=== PATIENT | male | born 1985 | race Caucasian/White ===

== ENCOUNTER 2020-11-23 22:50 | Emergency (ER) | payer SELFPAY | END 2020-11-23 23:00 | disposition left against medical advice (07) | LOC: ED 22:50 | DX: M79.604 Pain in right leg (principal); Z53.21 Procedure and treatment not carried out due to patient leaving prior to being seen by health care provider ==

== ENCOUNTER 2021-01-22 22:38 | Emergency (ER) | payer MEDICAID ==
[2021-01-22 23:59] LABS: Bilirubin,Urine NEG (Negative); Blood,Urine NEG (Negative); Color,Urine Yellow (Yellow); Mucus,Urine FEW /HPF; Protein,Urine <15 mg/dL mg/dL (Negative); Urobilinogen,Urine < 2.0 mg/dL (<2.0)
[2021-01-23 00:04] LABS: Benzodiazepines Screen,Urine Negative; Cannabinoid Screen,Urine Negative; Cocaine Screen,Urine Negative; Methadone Screen,Urine Negative; Opiate Screen,Urine Negative
[2021-01-23 00:13] LABS: Basophils % (Auto) 0.6 % (0.0-1.8); Eosinophils % (Auto) 0.3 % (0.0-4.3); Hemoglobin 12.8 gm/dl (11.8-15.2); Lymphocytes # (Auto) 1.8 K/mm3 (1.2-5.4); Lymphocytes % (Auto) 34.5 % (13.4-35.0); Mean Corpuscular HGB Conc 33 % (32-34); Mean Corpuscular Volume 95 fl (84-94); Monocytes # (Auto) 0.7 K/mm3 (0.0-0.8); Monocytes % (Auto) 13.4 % (0.0-7.3); Platelet Count 349 K/mm3 (140-440); Red Blood Count 4.12 M/mm3 (3.65-5.03)
[2021-01-23 00:19] LABS: Amphetamine Screen,Urine PRESUMPTIVE POSITIVE
[2021-01-23 00:29] LABS: BUN/Creatinine Ratio 14; Blood Urea Nitrogen 14 mg/dL (9-20); Calcium 9.7 mg/dL (8.4-10.2); Hemolysis Index 1
--- NOTE | 2021-01-23 00:38 | Emergency Department Report ---
HPI - HPI HPI: Room 12 The patient is a 36-year-old male present with a chief complaint of paranoia. The patient admits to methamphetamine abuse states he last used yesterday. The patient states for the past several hours he is noticed people following and antagonizing him. Patient states they follow him on the bus in a crowded space. The patient states they make clicking sounds that sound like weapons being manip ulated. Patient states he believes these people are real and denies auditory visual hallucinations. Patient denies suicidal homicidal ideation <MISHA GODFREY - Last Filed: 01/23/21 02:05> <QUIQUE DUNCAN - Last Filed: 01/23/21 19:32> - General Chief Complaint: Psych Time Seen by Provider: 01/23/21 00:26 ED Past Medical Hx - Past Medical History Previous Medical History?: Yes Hx Psychiatric Treatment: Yes (anxiety manic depressive) - Surgical History Past Surgical History?: Yes Additional Surgical History: facial surgeries - Family History Family history: no significant - Social History Smoking Status: Current Every Day Smoker (1/2 pack/day) Substance Use Type: Alcohol (Rarely), Methamphetamines <MISHA GODFREY - Last Filed: 01/23/21 02:05> <QUIQUE DUNCAN - Last Filed: 01/23/21 19:32> - Medications Home Medications: Home Medications Medication Instructions Recorded Confirmed Last Taken Type ARIPiprazole [Abilify] 15 mg PO DAILY 30 Days #30 tab 01/23/21 Unknown Rx QUEtiapine [SEROquel] 200 mg PO QHS 30 Days #30 tablet 01/23/21 Unknown Rx buPROPion XL [Wellbutrin Xl] 150 mg PO DAILY 30 Days #30 tablet 01/23/21 Unknown Rx ED Review of Systems ROS: Stated complaint: ANXIETY/MH EVAL Other details as noted in HPI Constitutional: no symptoms reported Eyes: denies: eye pain ENT: denies: throat pain Respiratory: no symptoms reported Cardiovascular: denies: chest pain Endocrine: no symptoms reported Gastrointestinal: denies: abdominal pain Genitourinary: denies: dysuria Musculoskeletal: denies: back pain Neurological: denies: headache Psychiatric: denies: auditory hallucinations, visual hallucinations, homicidal thoughts, suicidal thoughts <MISHA GODFREY - Last Filed: 01/23/21 02:05> ROS: Stated complaint: ANXIETY/MH EVAL Other details as noted in HPI <QUIQUE DUNCAN - Last Filed: 01/23/21 19:32> Physical Exam - Physical Exam Vital Signs: Vital Signs 01/22/21 23:20 Temperature 98.7 F Pulse Rate 104 H Respiratory 18 Rate Blood Pressure 160/103 O2 Sat by Pulse 99 Oximetry Physical Exam: GENERAL: The patient is well-developed well-nourished male standing in hallway not appearing to be in acute distress. [] HEENT: Normocephalic. Atraumatic. Extraocular motions are intact. Patient has moist mucous membranes. NECK: Supple. Trachea midline CHEST/LUNGS: Clear to auscultation. There is no respiratory distress noted. HEART/CARDIOVASCULAR: Regular. There is no tachycardia. There is no gallop rub or murmur. ABDOMEN: Abdomen is soft, nontender. Patient has normal bowel sounds. There is no abdominal distention. SKIN: There is no rash. There is no edema. There is no diaphoresis. NEURO: The patient is awake, alert, and oriented. The patient is cooperative. The patient has no focal neurologic deficits. The patient has normal speech and gait. GCS 15 MUSCULOSKELETAL: There is no evidence of acute injury. <MISHA GODFREY - Last Filed: 01/23/21 02:05> - Physical Exam Vital Signs: Vital Signs 01/22/21 01/23/21 01/23/21 23:20 03:00 03:12 Temperature 98.7 F 98.6 F Pulse Rate 104 H 95 H Respiratory 18 20 20 Rate Blood Pressure 160/103 Blood Pressure 155/98 [Left] O2 Sat by Pulse 99 99 99 Oximetry 01/23/21 08:34 Temperature 97.6 F Pulse Rate 84 Respiratory 16 Rate Blood Pressure Blood Pressure 132/84 [Left] O2 Sat by Pulse 99 Oximetry <QUIQUE DUNCAN - Last Filed: 01/23/21 19:32> ED Course Vital Signs 01/22/21 23:20 Temperature 98.7 F Pulse Rate 104 H Respiratory 18 Rate Blood Pressure 160/103 O2 Sat by Pulse 99 Oximetry <MISHA GODFREY - Last Filed: 01/23/21 02:05> Vital Signs 01/22/21 01/23/21 01/23/21 23:20 03:00 03:12 Temperature 98.7 F 98.6 F Pulse Rate 104 H 95 H Respiratory 18 20 20 Rate Blood Pressure 160/103 Blood Pressure 155/98 [Left] O2 Sat by Pulse 99 99 99 Oximetry 01/23/21 08:34 Temperature 97.6 F Pulse Rate 84 Respiratory 16 Rate Blood Pressure Blood Pressure 132/84 [Left] O2 Sat by Pulse 99 Oximetry <QUIQUE DUNCAN - Last Filed: 01/23/21 19:32> ED Medical Decision Making - Lab Data Result diagrams: 01/22/21 23:26 01/22/21 23:26 Laboratory Tests 01/22/21 01/22/21 01/22/21 23:26 23:26 23:26 WBC RBC Hgb Hct MCV MCH MCHC RDW Plt Count Lymph % (Auto) [place] % (Auto) Eos % (Auto) Baso % (Auto) Lymph # (Auto) [place] # (Auto) Eos # (Auto) Baso # (Auto) Seg Neutrophils % Seg Neutrophils # Sodium 139 Potassium 3.9 Chloride 101.6 Carbon Dioxide 23 Anion Gap 18 BUN 14 Creatinine 1.0 Estimated GFR > 60 BUN/Creatinine Ratio 14 Glucose 72 L Calcium 9.7 Urine Color Urine Turbidity Urine pH Ur Specific [place] Urine Protein Urine Glucose (UA) Urine Ketones Urine Blood Urine Nitrite Urine Bilirubin Urine Urobilinogen Ur Leukocyte Esterase Urine WBC (Auto) Urine RBC (Auto) Urine Mucus Salicylates < 0.3 L Urine Opiates Screen Urine Methadone Screen Acetaminophen 5.0 L Ur Barbiturates Screen Ur Phencyclidine Scrn Ur Amphetamines Screen U Benzodiazepines Scrn Urine Cocaine Screen U Marijuana (THC) Screen Drugs of Abuse Note Plasma/Serum Alcohol 01/22/21 01/22/21 01/22/21 23:26 23:26 Unknown WBC 5.4 RBC 4.12 Hgb 12.8 Hct 39.0 MCV 95 H MCH 31 MCHC 33 RDW 13.0 L Plt Count 349 Lymph % (Auto) 34.5 [place] % (Auto) 13.4 H Eos % (Auto) 0.3 Baso % (Auto) 0.6 Lymph # (Auto) 1.8 [place] # (Auto) 0.7 Eos # (Auto) 0.0 Baso # (Auto) 0.0 Seg Neutrophils % 51.2 Seg Neutrophils # 2.7 Sodium Potassium Chloride Carbon Dioxide Anion Gap BUN Creatinine Estimated GFR BUN/Creatinine Ratio Glucose Calcium Urine Color Yellow Urine Turbidity Clear Urine pH 5.0 Ur Specific [place] 1.012 Urine Protein <15 mg/dl Urine Glucose (UA) Neg Urine Ketones Tr Urine Blood Neg Urine Nitrite Neg Urine Bilirubin Neg Urine Urobilinogen < 2.0 Ur Leukocyte Esterase Neg Urine WBC (Auto) 1.0 Urine RBC (Auto) 1.0 Urine Mucus Few Salicylates Urine Opiates Screen Urine Methadone Screen Acetaminophen Ur Barbiturates Screen Ur Phencyclidine Scrn Ur Amphetamines Screen U Benzodiazepines Scrn Urine Cocaine Screen U Marijuana (THC) Screen Drugs of Abuse Note Plasma/Serum Alcohol < 0.01 01/22/21 Unknown WBC RBC Hgb Hct MCV MCH MCHC RDW Plt Count Lymph % (Auto) [place] % (Auto) Eos % (Auto) Baso % (Auto) Lymph # (Auto) [place] # (Auto) Eos # (Auto) Baso # (Auto) Seg Neutrophils % Seg Neutrophils # Sodium Potassium Chloride Carbon Dioxide Anion Gap BUN Creatinine Estimated GFR BUN/Creatinine Ratio Glucose Calcium Urine Color Urine Turbidity Urine pH Ur Specific [place] Urine Protein Urine Glucose (UA) Urine Ketones Urine Blood Urine Nitrite Urine Bilirubin Urine Urobilinogen Ur Leukocyte Esterase Urine WBC (Auto) Urine RBC (Auto) Urine Mucus Salicylates Urine Opiates Screen Negative Urine Methadone Screen Negative Acetaminophen Ur Barbiturates Screen Negative Ur Phencyclidine Scrn Negative Ur Amphetamines Screen Presumptive positive U Benzodiazepines Scrn Negative Urine Cocaine Screen Negative U Marijuana (THC) Screen Negative Drugs of Abuse Note Disclamer Plasma/Serum Alcohol - Differential Diagnosis Paranoia, methamphetamine abuse, psychosis NOS <MISHA GODFREY - Last Filed: 01/23/21 02:05> - Lab Data Result diagrams: 01/22/21 23:26 01/22/21 23:26 - Medical Decision Making Patient has been evaluated by our psychiatric team and recommended outpatient treatment. Patient is currently denying any suicidal or homicidal ideation. No visual or auditory hallucination. Patient is medically and psychiatrically stable for discharge. <QUIQUE DUNCAN - Last Filed: 01/23/21 19:32> Critical care attestation.: If time is entered above; I have spent that time in minutes in the direct care of this critically ill patient, excluding procedure time. <MISHA GODFREY - Last Filed: 01/23/21 02:05> Critical care attestation.: If time is entered above; I have spent that time in minutes in the direct care of this critically ill patient, excluding procedure time. <QUIQUE DUNCAN - Last Filed: 01/23/21 19:32> ED Disposition <MISHA GODFREY - Last Filed: 01/23/21 02:05> Is pt being admited?: No <QUIQUE DUNCAN - Last Filed: 01/23/21 19:32> Clinical Impression: Paranoia, Methamphetamine abuse Disposition: - TO HOME OR SELFCARE Condition: Stable Instructions: Amphetamines Use Disorder, Substance Use Disorder Prescriptions: QUEtiapine [SEROquel] 200 mg PO QHS 30 Days #30 tablet ARIPiprazole [Abilify] 15 mg PO DAILY 30 Days #30 tab buPROPion XL [Wellbutrin Xl] 150 mg PO DAILY 30 Days #30 tablet Referrals: PRIMARY CARE, [Primary Care Provider] - 3-5 Days
[2021-01-23 08:34] VITALS: BP 132/84
--- NOTE | 2021-01-23 09:24 | Consultation ---
History of Present Illness - Reason for Consult Consult date: 01/23/21 Reason for consult: paranoia - History of Present Psychiatric Illness Per Note: The patient is a 36-year-old male present with a chief complaint of paranoia. The patient admits to methamphetamine abuse states he last used yesterday. The patient states for the past several hours he is noticed people following and antagonizing him. Patient states they follow him on the bus in a crowded space. The patient states they make clicking sounds that sound like weapons being manipulated. Patient states he believes these people are real and denies auditory visual hallucinations. Patient denies suicidal homicidal ideation Rodney Bernal is a 36 year old male with a past history of schizophrenia, Depression, Anxiety and PTSD who presents to the ED with paranoia. In my interview with the patient, he reports that he ran out of medications since about one week. Patient reports that he is seen at [facility] by Dr. Jamison. He reports that he his currently in therapy for Crystal Meth. recovery; states he has been sober for the last four weeks. He has tried Risperdal in the past but stopped due to weight gain. Patient states he is current on Wellbutrin XL 150mg, Abilify 15mg, and Seroquel 200mg. Patient denies any current suicidal/homicidal ideation and denies hallucinations. PAST PSYCHIATRIC HISTORY: Diagnoses: schizophrenia, depression, Anxiety, PTSD Suicide attempts or Self-harm behavior: Denies Prior psychiatric hospitalizations: unknown Substance Abuse history: Crystal Meth Previous psychiatric medications tried: Risperdal Outpatient treatment: yes PAST MEDICAL HISTORY: n/a Family Psychiatric History: None reported or documented SOCIAL HISTORY Marital Status: Living Arrangements: Lives alone Employment Status: Disability Access to guns/weapons: n/a Education: GED History of Abuse: n/a Legal History: n/a REVIEW OF SYSTEMS Constitutional: Negative for weight loss ENT: Negative for stridor Respiratory: Negative for cough or hemoptysis All other systems reviewed and are negative MENTAL STATUS EXAMINATION General Appearance and Behavior: Age appropriate, good hygiene, wearing appropriate clothes, uncooperative polite with questioning. Cooperation: cooperative Psychomotor Behavior: Psychomotor agitation Mood: good Affect and affective range: congruent to stated mood Thought Process: Goal directed Thought Content: within reality Speech: Normal volume, Regular rate and rhythm Intellectual Functioning: Average Suicidal Ideation: Denied Homicidal Ideation: Denied hallucination: Denies Impulse Control: Intact Insight and Judgment: limited Memory: Intact Attention:Normal Orientation: Alert and oriented Diagnoses:Schizophrenia F20.9 Current Visit: Yes Status: Acute RECOMMENDATIONS 1013 start Welbutrin XL 150mg po daily Start Abilify 15mg po daily Start seroquel 200mg po qhs Risks, benefits and alternatives of medications discussed with the patient, questions answered and consent obtained from patient. PSYCHOTHERAPY: Supportive psychotherapy provided MEDICAL: Per primary team DELIRIUM PRECAUTIONS: Please re-orient patient frequently, keep lights on during the day, and minimize benzodiazepines and opiates as these medications could worsen patient's confusion. 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 Please contact with any questions and/or concerns. Medications and Allergies Allergies Allergy/AdvReac Type Severity Reaction Status Date / Time shellfish derived Allergy Unknown Verified 01/22/21 23:20 Mental Status Exam - Vital signs Last Vital Signs Temp 97.6 F 01/23/21 08:34 Pulse 84 01/23/21 08:34 Resp 16 01/23/21 08:34 BP 132/84 01/23/21 08:34 Pulse Ox 99 01/23/21 08:34 Results Result Diagrams: 01/22/21 23:26 01/22/21 23:26 Abnormal lab results 01/22/21 01/22/21 01/22/21 Range/Units 23:26 23:26 23:26 MCV (84-94) fl RDW (13.2-15.2) % [place] % (Auto) (0.0-7.3) % Glucose 72 L (75-100) mg/dL Salicylates < 0.3 L (2.8-20.0) mg/dL Acetaminophen 5.0 L (10.0-30.0) ug/mL 01/22/21 Range/Units 23:26 MCV 95 H (84-94) fl RDW 13.0 L (13.2-15.2) % [place] % (Auto) 13.4 H (0.0-7.3) % Glucose (75-100) mg/dL Salicylates (2.8-20.0) mg/dL Acetaminophen (10.0-30.0) ug/mL All other labs normal.
== END 2021-01-23 11:56 | disposition home or self-care (01) ==
LOC: EDBD → ED 22:38 → EEVIPCON 22:38 → ED 01-23 11:56
DX: F22 Delusional disorders (principal); F15.10 Other stimulant abuse, uncomplicated; Z79.899 Other long term (current) drug therapy; Z91.013 Allergy to seafood
CPT/HCPCS: 36415; 80048; 80307; 80320; 81001; 85025; G0480

== ENCOUNTER 2021-01-26 01:53 | Emergency (ER) | payer SELFPAY | END 2021-01-26 06:45 | disposition left against medical advice (07) | LOC: ED 01:53 ==

== ENCOUNTER 2021-01-30 22:21 | Emergency (ER) | payer MEDICAID ==
[2021-01-31 00:20] LABS: BUN/Creatinine Ratio 10; Blood Urea Nitrogen 8 mg/dL (9-20); Calcium 9.3 mg/dL (8.4-10.2); Hemolysis Index 4
--- NOTE | 2021-01-31 01:01 | Emergency Department Report ---
ED Psych HPI - General Chief Complaint: Psych Stated Complaint: HOMICIDAL/VOICES/UNSAFE FEELING Time Seen by Provider: 01/31/21 00:58 Source: patient Mode of arrival: Ambulatory - History of Present Illness Initial Comments: Patient is a 36-year-old male who presents emergency room with complaints of homicidal ideations, auditory hallucinations, and not feeling safe. Patient s tates she is also depressed. Patient dates symptoms going on for 3 weeks. Patient states his symptoms are worsening. Patient states he needs help. Patient states 7 thoughts of people are out to get him. Patient states that his homicidal thoughts are against people that want to get him and he wants to kill them. Patient denies suicidal ideations. Patient denies visual hallucinations. Patient denies recent travel. Patient denies recent international travel. Patient denies exposure to the novel coronavirus. Patient denies sick contacts. Patient denies fever and chills. Patient denies cough. Patient denies diarrhea. Patient denies coming in contact with anybody with symptoms of the novel coronavirus. MD Complaint: feels depressed -: Sudden Associated Psychiatric Symptoms: homicidal ideation, racing thoughts, auditory hallucinations, delusions History of same: Yes Quality: constant Improves With: none Worsens With: none Context: not taking psychiatric, significant life stressor Associated Symptoms: denies: confusion, headache, shortness of breath, nausea, vomiting, syncope, insomnia - Related Data Previous Rx's Medication Instructions Recorded Last Taken Type ARIPiprazole [Abilify] 15 mg PO DAILY 30 Days #30 tab 01/23/21 Unknown Rx QUEtiapine [SEROquel] 200 mg PO QHS 30 Days #30 tablet 01/23/21 Unknown Rx buPROPion XL [Wellbutrin Xl] 150 mg PO DAILY 30 Days #30 tablet 01/23/21 Unknown Rx Allergies Allergy/AdvReac Type Severity Reaction Status Date / Time shellfish derived Allergy Unknown Verified 01/22/21 23:20 ED Review of Systems ROS: Stated complaint: HOMICIDAL/VOICES/UNSAFE FEELING Other details as noted in HPI Constitutional: denies: chills, fever Eyes: denies: eye pain, eye discharge, vision change ENT: denies: ear pain, throat pain Respiratory: denies: cough, shortness of breath, wheezing Cardiovascular: denies: chest pain, palpitations Endocrine: no symptoms reported Gastrointestinal: denies: abdominal pain, nausea, diarrhea Genitourinary: denies: urgency, dysuria Musculoskeletal: denies: back pain, joint swelling, arthralgia Skin: denies: rash, lesions Neurological: denies: headache, weakness, paresthesias Psychiatric: depression, auditory hallucinations, homicidal thoughts. denies: anxiety, visual hallucinations, suicidal thoughts Hematological/Lymphatic: denies: easy bleeding, easy bruising ED Past Medical Hx - Past Medical History Previous Medical History?: Yes Hx Psychiatric Treatment: Yes (anxiety manic depressive) - Surgical History Past Surgical History?: Yes Additional Surgical History: facial surgeries - Family History Family history: no significant - Social History Smoking Status: Never Smoker Substance Use Type: None - Medications Home Medications: Home Medications Medication Instructions Recorded Confirmed Last Taken Type ARIPiprazole [Abilify] 15 mg PO DAILY 30 Days #30 tab 01/23/21 01/31/21 Unknown Rx QUEtiapine [SEROquel] 200 mg PO QHS 30 Days #30 tablet 01/23/21 01/31/21 Unknown Rx buPROPion XL [Wellbutrin Xl] 150 mg PO DAILY 30 Days #30 tablet 01/23/21 01/31/21 Unknown Rx ED Physical Exam - General Limitations: No Limitations General appearance: alert, in no apparent distress - Head Head exam: Present: atraumatic, normocephalic - Eye Eye exam: Present: normal appearance - ENT ENT exam: Present: mucous membranes moist - Neck Neck exam: Present: normal inspection - Respiratory Respiratory exam: Present: normal lung sounds bilaterally. Absent: respiratory distress - Cardiovascular Cardiovascular Exam: Present: regular rate, normal rhythm. Absent: systolic murmur, diastolic murmur, rubs, gallop - GI/Abdominal GI/Abdominal exam: Present: soft, normal bowel sounds - Rectal Rectal exam: Present: deferred - Extremities Exam Extremities exam: Present: normal inspection - Back Exam Back exam: Present: normal inspection - Neurological Exam Neurological exam: Present: alert, oriented X3 - Psychiatric Psychiatric exam: Present: flat affect, homicidal ideation - Expanded Psychiatric Exam Expanded Focused psych exam: Present: delusional, paranoid - Skin Skin exam: Present: warm, dry, intact, normal color. Absent: rash ED Course Vital Signs 01/30/21 01/31/21 01/31/21 23:36 01:15 02:54 Temperature 98.4 F 98 F Pulse Rate 68 74 Respiratory 18 18 18 Rate Blood Pressure 127/81 Blood Pressure 117/70 [Left] O2 Sat by Pulse 99 99 99 Oximetry 01/31/21 01/31/21 01/31/21 08:00 19:45 20:57 Temperature 97.8 F 97.8 F Pulse Rate 61 57 L Respiratory 16 18 18 Rate Blood Pressure Blood Pressure 119/71 108/63 [Left] O2 Sat by Pulse 100 99 99 Oximetry 02/01/21 08:54 Temperature 98.6 F Pulse Rate 66 Respiratory 18 Rate Blood Pressure Blood Pressure 119/79 [Left] O2 Sat by Pulse 96 Oximetry - Reevaluation(s) Reevaluation #1: Initial evaluation done. Patient placed on a ER hold. 01/31/21 01:01 Reevaluation #2: Patient is medically cleared. Patient will remain in the ER as an ER hold until the patient's cleared by the psychiatry mental health team. Patient's final disposition will come from our psychiatry mental health team. 01/31/21 04:35 ED Medical Decision Making - Lab Data Result diagrams: 01/30/21 23:44 01/30/21 23:44 - Medical Decision Making Patient is a 36-year-old male who presents emergency room with complaints of homicidal ideations and acute psychosis. Patient had labs done which were essentially unremarkable. Patient's UDS was positive for cocaine. Patient placed on a ER hold after initial evaluation. Patient is medically cleared. Patient final disposition will come from our mental health and psychiatry team. Patient will remain in the ER as a hold until the patient is cleared by the psychiatry team. - Differential Diagnosis Homicidal ideation, hallucinations, psychosis, delusions and paranoia. Critical care attestation.: If time is entered above; I have spent that time in minutes in the direct care of this critically ill patient, excluding procedure time. ED Disposition Clinical Impression: Paranoia, Acute psychosis Disposition: DC-01 TO HOME OR SELFCARE Is pt being admited?: No Does the pt Need Aspirin: No Condition: Stable Instructions: Schizophrenia Additional Instructions: OUTPATIENT MENTAL HEALTH RESOURCES [facility], [facility] Manuela Brewer MD: [address], [address] [place] [address] [place] [address] [facility]: [facility] [address] [place] [address] [place] [address] [phone] [place] [facility]: [facility]: [address] [facility] [address] [facility] [place] [address] [facility] [address] [facility]: Juan Luis Ford MD: [address] [facility] [address] [place] [facility] [address] [facility]: [address] [place] [phone] [place] CRISIS AND ACCESS LINE: In case of an emergency, please contact the following numbers: [place] Crisis and Access Line: Number: Crisis Text Line: (Text START) Number: 847420 Suicide Prevention Line: Number: Emergency Number: 911 SUBSTANCE ABUSE PROGRAMS: So[facility]: Location: [place], [place] [facility] [employer] Address: [address] [place] [address] [facility]: Address: [address] [place] [address] [facility]: Address: [address] [place] [address] [facility]: Address: [address] [place] [address] [facility] Address: [address] [place] [address]. Please contact above numbers to attempt placement into free based program. Medicaid Programs: [facility]: Address: [address] [place] [address] [facility]: Address: [address] [place] [id number] Referrals: PRIMARY CAREMD [Primary Care Provider] - 3-5 Days Time of Disposition: 04:36
[2021-01-31 01:26] LABS: Hemoglobin 13.1 gm/dl (11.8-15.2); Red Blood Count 4.31 M/mm3 (3.65-5.03)
[2021-01-31 01:27] LABS: Basophils # (Auto) 0.1 K/mm3 (0.0-0.1); Basophils % (Auto) 1.9 % (0.0-1.8); Eosinophils # (Auto) 0.1 K/mm3 (0.0-0.4); Hematocrit 40.3 % (35.5-45.6); Lymphocytes # (Auto) 1.6 K/mm3 (1.2-5.4); Lymphocytes % (Auto) 39.7 % (13.4-35.0); Mean Corpuscular HGB Conc 33 % (32-34); Mean Corpuscular Volume 93 fl (84-94); Monocytes # (Auto) 0.3 K/mm3 (0.0-0.8); Monocytes % (Auto) 8.2 % (0.0-7.3); Platelet Count 337 K/mm3 (140-440)
[2021-01-31 03:14] LABS: Bilirubin,Urine NEG (Negative); Blood,Urine NEG (Negative); Color,Urine Straw (Yellow); Protein,Urine <15 mg/dL mg/dL (Negative); Urobilinogen,Urine < 2.0 mg/dL (<2.0); WBC,Urine < 1.0 /HPF (0.0-6.0)
[2021-01-31 03:22] LABS: Amphetamine Screen,Urine Negative; Benzodiazepines Screen,Urine Negative; Cannabinoid Screen,Urine Negative; Methadone Screen,Urine Negative; Opiate Screen,Urine Negative
[2021-01-31 03:37] LABS: Cocaine Screen,Urine Positive
--- NOTE | 2021-01-31 10:21 | Event Note ---
S: Sleeping O: Stable vital signs, labs within normal limits UDS positive cocaine A: Drug-induced psychosis, cocaine dependence Patient is medically clear for psychiatric care P: Awaiting treatment recommendations by psychiatric team
--- NOTE | 2021-01-31 12:24 | Consultation ---
History of Present Illness - Reason for Consult Consult date: 01/31/21 Reason for consult: Homicidal ideation - History of Present Psychiatric Illness Per Ed Note: Patient is a 36-year-old male who presents emergency room with complaints of homicidal ideations, auditory hallucinations, and not feeling safe. Patient states she is also depressed. Patient dates symptoms going on for 3 weeks. Patient states his symptoms are worsening. Patient states he needs help. Patient states 7 thoughts of people are out to get him. Patient states that his homicidal thoughts are against people that want to get him and he wants to kill them. Patient denies suicidal ideations. Patient denies visual hallucinations. Rodney Bernal is a 36year old male with a history of Schizophrenia, Depression, Anxiety and PTSD who presents to the ED for Homicidal ideation. In my interview with the patient today, He continues to endorse homicidal ideation " I want to kill this kolby that keeps messing with me." Patient states he does not feel safe around his room mate " I feel like people are trying to kill me; he keeps threatening me." Patient denies any AVHs. and denies sucidal ideations. PAST PSYCHIATRIC HISTORY: Diagnoses: schizophrenia, depression, Anxiety, PTSD Suicide attempts or Self-harm behavior: Denies Prior psychiatric hospitalizations: unknown Substance Abuse history: Crystal Meth Previous psychiatric medications tried: Risperdal Outpatient treatment: yes PAST MEDICAL HISTORY: n/a Family Psychiatric History: None reported or documented SOCIAL HISTORY Marital Status: Living Arrangements: Lives alone Employment Status: Disability Access to guns/weapons: n/a Education: GED History of Abuse: n/a Legal History: n/a REVIEW OF SYSTEMS Constitutional: Negative for weight loss ENT: Negative for stridor Respiratory: Negative for cough or hemoptysis All other systems reviewed and are negative MENTAL STATUS EXAMINATION General Appearance and Behavior: Age appropriate, good hygiene, wearing appropriate clothes, uncooperative polite with questioning. Cooperation: cooperative Psychomotor Behavior: Psychomotor agitation Mood: Irritable Affect and affective range: congruent to stated mood Thought Process: Goal directed Thought Content: within reality Speech: Normal volume, Regular rate and rhythm Intellectual Functioning: Average Suicidal Ideation: Denied Homicidal Ideation: Yes hallucination: Denies Impulse Control: Intact Insight and Judgment: limited Memory: Intact Attention:Normal Orientation: Alert and oriented Diagnoses: Major Depressive Disorder, Recurrent, Severe- F33.2 Current Visit: Yes Status: Acute RECOMMENDATIONS 1013 start Welbutrin XL 150mg po daily Start Abilify 15mg po daily Start seroquel 200mg po qhs Risks, benefits and alternatives of medications discussed with the patient, questions answered and consent obtained from patient. PSYCHOTHERAPY: Supportive psychotherapy provided MEDICAL: Per primary team DELIRIUM PRECAUTIONS: Please re-orient patient frequently, keep lights on during the day, and minimize benzodiazepines and opiates as these medications could worsen patient's confusion. 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 Please contact with any questions and/or concerns. Medications and Allergies Allergies Allergy/AdvReac Type Severity Reaction Status Date / Time shellfish derived Allergy Unknown Verified 01/22/21 23:20 Home Medications Medication Instructions Recorded Confirmed Last Taken Type ARIPiprazole [Abilify] 15 mg PO DAILY 30 Days #30 tab 01/23/21 01/31/21 Unknown Rx QUEtiapine [SEROquel] 200 mg PO QHS 30 Days #30 tablet 01/23/21 01/31/21 Unknown Rx buPROPion XL [Wellbutrin Xl] 150 mg PO DAILY 30 Days #30 tablet 01/23/21 01/31/21 Unknown Rx Mental Status Exam - Vital signs Last Vital Signs Temp 97.8 F 01/31/21 08:00 Pulse 61 01/31/21 08:00 Resp 16 01/31/21 08:00 BP 119/71 01/31/21 08:00 Pulse Ox 100 01/31/21 08:00 Results Result Diagrams: 01/30/21 23:44 01/30/21 23:44 Abnormal lab results 01/30/21 01/30/21 01/30/21 Range/Units 23:44 23:44 23:44 WBC (4.5-11.0) K/mm3 RDW (13.2-15.2) % Lymph % (Auto) (13.4-35.0) % [place] % (Auto) (0.0-7.3) % Baso % (Auto) (0.0-1.8) % BUN 8 L (9-20) mg/dL Salicylates < 0.3 L (2.8-20.0) mg/dL Acetaminophen 5.0 L (10.0-30.0) ug/mL 01/30/21 Range/Units 23:44 WBC 3.9 L (4.5-11.0) K/mm3 RDW 13.0 L (13.2-15.2) % Lymph % (Auto) 39.7 H (13.4-35.0) % [place] % (Auto) 8.2 H (0.0-7.3) % Baso % (Auto) 1.9 H (0.0-1.8) % BUN (9-20) mg/dL Salicylates (2.8-20.0) mg/dL Acetaminophen (10.0-30.0) ug/mL All other labs normal.
[2021-01-31] MEDS: buPROPion XL 150 MG TAB PO SCH (13:31)
[2021-01-31] MEDS: ARIPiprazole 15 MG TAB PO SCH (13:31)
[2021-01-31] MEDS ORDERED: QUEtiapine 100 MG TAB PO SCH (22:00)
[2021-02-01 08:55] VITALS: BP 119/79
--- NOTE | 2021-02-01 09:42 | Progress Note ---
Subjective - Reason for Consult Consult date: 02/01/21 Reason for consult: Homicidal ideation - Chief Complaint Chief complaint: The patient was seen today in the ED waiting room. Patient reports doing well. He states sleep and appetite as good. He denies any current SI/HI and denies hallucinations. Patient is focused on discharge. REVIEW OF SYSTEMS Constitutional: Negative for weight loss ENT: Negative for stridor Respiratory: Negative for cough or hemoptysis All other systems reviewed and are negative MENTAL STATUS EXAMINATION General Appearance and Behavior: Age appropriate, good hygiene, wearing appropriate clothes, uncooperative polite with questioning. Cooperation: cooperative Psychomotor Behavior: Psychomotor agitation Mood: Irritable Affect and affective range: congruent to stated mood Thought Process: Goal directed Thought Content: within reality Speech: Normal volume, Regular rate and rhythm Intellectual Functioning: Average Suicidal Ideation: Denied Homicidal Ideation: Yes hallucination: Denies Impulse Control: Intact Insight and Judgment: limited Memory: Intact Attention:Normal Orientation: Alert and oriented Diagnoses: Major Depressive Disorder, Recurrent, Severe- F33.2 Current Visit: Yes Status: Acute RECOMMENDATIONS DC 1013 ContinueWelbutrin XL 150mg po daily Continue Abilify 15mg po daily Continue seroquel 200mg po qhs Risks, benefits and alternatives of medications discussed with the patient, questions answered and consent obtained from patient. PSYCHOTHERAPY: Supportive psychotherapy provided MEDICAL: Per primary team DELIRIUM PRECAUTIONS: Please re-orient patient frequently, keep lights on during the day, and minimize benzodiazepines and opiates as these medications could worsen patient's confusion. 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 The patient should be compliant with medications, not to use drugs and not to drink alcohol. The patient understands that if suicidal ideas, homicidal ideas or any endangering thoughts/behavior should arise, they should immediately seek for emergent assistance including but not limited to crisis hot line and emergency room. Follow up with outpatient psychiatry and PCP within 7- 14 day post discharge. Please contact with any questions and/or concerns. Medications and Allergies Allergies Mental Status Exam - Vital signs Last Vital Signs Temp 98.6 F 02/01/21 08:54 Pulse 66 02/01/21 08:54 Resp 18 02/01/21 08:54 BP 119/79 02/01/21 08:54 Pulse Ox 96 02/01/21 08:54
--- NOTE | 2021-02-01 10:39 | Event Note ---
Date: 02/01/21 Patient has been seen, evaluated, and cleared by psychiatry team. Inpatient placement is no longer recommended. Patient will be discharged at this time with outpatient follow-up information.
[2021-02-01] MEDS: buPROPion XL 150 MG TAB PO SCH (10:55)
[2021-02-01] MEDS: ARIPiprazole 15 MG TAB PO SCH (10:55)
== END 2021-02-01 13:08 | disposition home or self-care (01) ==
LOC: ED 22:21
DX: F23 Brief psychotic disorder (principal); Z20.822 Contact with and (suspected) exposure to COVID-19; R45.850 Homicidal ideations; F22 Delusional disorders; F41.9 Anxiety disorder, unspecified; Z98.890 Other specified postprocedural states; Z79.899 Other long term (current) drug therapy; Z91.013 Allergy to seafood
CPT/HCPCS: 36415; 80048; 80307; 81001; 85025; 99284; U0003; 80320; G0480

== ENCOUNTER 2021-02-10 03:00 | Emergency (ER) | payer MEDICAID ==
[2021-02-10 04:22] LABS: Bilirubin,Urine NEG (Negative); Blood,Urine NEG (Negative); Color,Urine Yellow (Yellow); Mucus,Urine FEW /HPF; Protein,Urine <15 mg/dL mg/dL (Negative); Urobilinogen,Urine < 2.0 mg/dL (<2.0)
[2021-02-10 04:29] LABS: Amphetamine Screen,Urine PRESUMPTIVE POSITIVE; Benzodiazepines Screen,Urine PRESUMPTIVE NEGATIVE; Cannabinoid Screen,Urine PRESUMPTIVE POSITIVE; Cocaine Screen,Urine PRESUMPTIVE NEGATIVE; Methadone Screen,Urine PRESUMPTIVE NEGATIVE; Opiate Screen,Urine PRESUMPTIVE NEGATIVE
[2021-02-10 04:53] LABS: Basophils % (Auto) 0.6 % (0.0-1.8); Eosinophils % (Auto) 0.7 % (0.0-4.3); Hematocrit 42.8 % (35.5-45.6); Hemoglobin 14.3 gm/dl (11.8-15.2); Lymphocytes # (Auto) 1.7 K/mm3 (1.2-5.4); Lymphocytes % (Auto) 33.2 % (13.4-35.0); Mean Corpuscular HGB Conc 34 % (32-34); Mean Corpuscular Volume 94 fl (84-94); Monocytes # (Auto) 0.6 K/mm3 (0.0-0.8); Monocytes % (Auto) 10.6 % (0.0-7.3); Platelet Count 350 K/mm3 (140-440); Red Blood Count 4.54 M/mm3 (3.65-5.03)
[2021-02-10 05:17] LABS: BUN/Creatinine Ratio 10; Blood Urea Nitrogen 11 mg/dL (9-20); Calcium 9.7 mg/dL (8.4-10.2); Hemolysis Index 41
--- NOTE | 2021-02-10 05:46 | Emergency Department Report ---
HPI - General Chief Complaint: Psych Time Seen by Provider: 02/10/21 05:36 - HPI HPI: 36-year-old male with history of bipolar disorder presents complaining of severe depression along with paranoia. He states that he has not been taking his medications for the past week because he is depressed. He states that he lives with roommates who are all out to get him. He states "everyone is out to get me". He says he does not feel safe because he knows that they are "against me". When asked whether he has suicidal or homicidal ideation, he says no but says he was having homicidal ideation in the past. He says he does hear voices but he does not know who his voices they are and they are not telling him anything specific. He denies visual hallucinations. He says he has chronic right leg pain but otherwise has no physical symptoms or complaints of any kind. ED Past Medical Hx - Past Medical History Previous Medical History?: Yes Hx Psychiatric Treatment: Yes (anxiety manic depressive) Hx HIV: Yes - Surgical History Past Surgical History?: Yes Additional Surgical History: facial surgeries - Social History Smoking Status: Current Every Day Smoker Substance Use Type: Alcohol, Marijuana - Medications Home Medications: Home Medications Medication Instructions Recorded Confirmed Last Taken Type ARIPiprazole [Abilify] 15 mg PO DAILY 30 Days #30 tab 01/23/21 02/10/21 Unknown Rx QUEtiapine [SEROquel] 200 mg PO QHS 30 Days #30 tablet 01/23/21 02/10/21 Unknown Rx buPROPion XL [Wellbutrin Xl] 300 mg PO DAILY 02/10/21 02/10/21 Unknown History ED Review of Systems ROS: Stated complaint: MENTAL HEALTH Other details as noted in HPI Constitutional: denies: chills, fever Eyes: denies: eye pain, vision change ENT: denies: throat pain, congestion Respiratory: denies: cough, shortness of breath Cardiovascular: denies: chest pain, palpitations Gastrointestinal: denies: abdominal pain, nausea, vomiting Genitourinary: denies: dysuria, frequency Musculoskeletal: denies: back pain Skin: denies: rash Neurological: denies: headache, weakness Psychiatric: depression, auditory hallucinations. denies: visual hallucinations, homicidal thoughts, suicidal thoughts Physical Exam - Physical Exam Vital Signs: Vital Signs 02/10/21 03:42 Temperature 98.2 F Pulse Rate 112 H Respiratory 17 Rate Blood Pressure 175/100 O2 Sat by Pulse 100 Oximetry Physical Exam: GENERAL: Well developed and well nourished. No acute distress HEAD: No obvious signs of trauma. ENT: Moist mucous membranes. EYES: Extraocular movements are intact. Pupils are equal round and reactive to light bilaterally NECK: Supple. Full ROM is intact. Trachea is midline. LUNGS: Nonlabored breathing. Equal chest rise bilaterally. Clear to auscultation bilaterally. CARDIOVASCULAR: Regular rate and rhythm. No murmurs or rubs. VASCULAR: Cap refill < 2 seconds ABDOMEN: Abdomen is soft and nondistended. There is no significant tenderness, guarding or rebound. SKIN: Skin is warm and dry NEURO: Patient is awake, alert, and oriented. 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 No focal deficits. Normal motor and sensory exam throughout. Normal speech. MUSCULOSKELETAL: No obvious deformities. No significant tenderness. Normal ROM throughout. ED Course Vital Signs 02/10/21 03:42 Temperature 98.2 F Pulse Rate 112 H Respiratory 17 Rate Blood Pressure 175/100 O2 Sat by Pulse 100 Oximetry ED Medical Decision Making - Lab Data Result diagrams: 02/10/21 04:12 02/10/21 04:12 Lab Results 02/10/21 02/10/21 02/10/21 Range/Units 04:12 04:12 04:12 WBC (4.5-11.0) K/mm3 RBC (3.65-5.03) M/mm3 Hgb (11.8-15.2) gm/dl Hct (35.5-45.6) % MCV (84-94) fl MCH (28-32) pg MCHC (32-34) % RDW (13.2-15.2) % Plt Count (140-440) K/mm3 Lymph % (Auto) (13.4-35.0) % [place] % (Auto) (0.0-7.3) % Eos % (Auto) (0.0-4.3) % Baso % (Auto) (0.0-1.8) % Lymph # (Auto) (1.2-5.4) K/mm3 [place] # (Auto) (0.0-0.8) K/mm3 Eos # (Auto) (0.0-0.4) K/mm3 Baso # (Auto) (0.0-0.1) K/mm3 Seg Neutrophils % (40.0-70.0) % Seg Neutrophils # (1.8-7.7) K/mm3 Sodium 137 (137-145) mmol/L Potassium 4.6 (3.6-5.0) mmol/L Chloride 99.9 (98-107) mmol/L Carbon Dioxide 23 (22-30) mmol/L Anion Gap 19 mmol/L BUN 11 (9-20) mg/dL Creatinine 1.1 (0.8-1.3) mg/dL Estimated GFR > 60 ml/min BUN/Creatinine Ratio 10 % Glucose 65 L (75-100) mg/dL POC Glucose (70-105) mg/dL Calcium 9.7 (8.4-10.2) mg/dL Urine Color (Yellow) Urine Turbidity (Clear) Urine pH (5.0-7.0) Ur Specific [place] (1.003-1.030) Urine Protein (Negative) mg/dL Urine Glucose (UA) (Negative) mg/dL Urine Ketones (Negative) mg/dL Urine Blood (Negative) Urine Nitrite (Negative) Urine Bilirubin (Negative) Urine Urobilinogen (<2.0) mg/dL Ur Leukocyte Esterase (Negative) Urine WBC (Auto) (0.0-6.0) /HPF Urine RBC (Auto) (0.0-6.0) /HPF U Epithel Cells (Auto) (0-13.0) /HPF Urine Mucus /HPF Salicylates < 0.3 L (2.8-20.0) mg/dL Urine Opiates Screen Urine Methadone Screen Acetaminophen 5.0 L (10.0-30.0) ug/mL Ur Barbiturates Screen Ur Phencyclidine Scrn Ur Amphetamines Screen U Benzodiazepines Scrn Urine Cocaine Screen U Marijuana (THC) Screen Drugs of Abuse Note Plasma/Serum Alcohol (0-0.07) % Coronavirus (PCR) (Negative) 02/10/21 02/10/21 02/10/21 Range/Units 04:12 04:12 11:05 WBC 5.3 (4.5-11.0) K/mm3 RBC 4.54 (3.65-5.03) M/mm3 Hgb 14.3 (11.8-15.2) gm/dl Hct 42.8 (35.5-45.6) % MCV 94 (84-94) fl MCH 32 (28-32) pg MCHC 34 (32-34) % RDW 13.0 L (13.2-15.2) % Plt Count 350 (140-440) K/mm3 Lymph % (Auto) 33.2 (13.4-35.0) % [place] % (Auto) 10.6 H (0.0-7.3) % Eos % (Auto) 0.7 (0.0-4.3) % Baso % (Auto) 0.6 (0.0-1.8) % Lymph # (Auto) 1.7 (1.2-5.4) K/mm3 [place] # (Auto) 0.6 (0.0-0.8) K/mm3 Eos # (Auto) 0.0 (0.0-0.4) K/mm3 Baso # (Auto) 0.0 (0.0-0.1) K/mm3 Seg Neutrophils % 54.9 (40.0-70.0) % Seg Neutrophils # 2.9 (1.8-7.7) K/mm3 Sodium (137-145) mmol/L Potassium (3.6-5.0) mmol/L Chloride (98-107) mmol/L Carbon Dioxide (22-30) mmol/L Anion Gap mmol/L BUN (9-20) mg/dL Creatinine (0.8-1.3) mg/dL Estimated GFR ml/min BUN/Creatinine Ratio % Glucose (75-100) mg/dL POC Glucose 87 (70-105) mg/dL Calcium (8.4-10.2) mg/dL Urine Color (Yellow) Urine Turbidity (Clear) Urine pH (5.0-7.0) Ur Specific [place] (1.003-1.030) Urine Protein (Negative) mg/dL Urine Glucose (UA) (Negative) mg/dL Urine Ketones (Negative) mg/dL Urine Blood (Negative) Urine Nitrite (Negative) Urine Bilirubin (Negative) Urine Urobilinogen (<2.0) mg/dL Ur Leukocyte Esterase (Negative) Urine WBC (Auto) (0.0-6.0) /HPF Urine RBC (Auto) (0.0-6.0) /HPF U Epithel Cells (Auto) (0-13.0) /HPF Urine Mucus /HPF Salicylates (2.8-20.0) mg/dL Urine Opiates Screen Urine Methadone Screen Acetaminophen (10.0-30.0) ug/mL Ur Barbiturates Screen Ur Phencyclidine Scrn Ur Amphetamines Screen U Benzodiazepines Scrn Urine Cocaine Screen U Marijuana (THC) Screen Drugs of Abuse Note Plasma/Serum Alcohol < 0.01 (0-0.07) % Coronavirus (PCR) (Negative) 02/10/21 02/10/21 02/10/21 Range/Units Unknown Unknown Unknown WBC (4.5-11.0) K/mm3 RBC (3.65-5.03) M/mm3 Hgb (11.8-15.2) gm/dl Hct (35.5-45.6) % MCV (84-94) fl MCH (28-32) pg MCHC (32-34) % RDW (13.2-15.2) % Plt Count (140-440) K/mm3 Lymph % (Auto) (13.4-35.0) % [place] % (Auto) (0.0-7.3) % Eos % (Auto) (0.0-4.3) % Baso % (Auto) (0.0-1.8) % Lymph # (Auto) (1.2-5.4) K/mm3 [place] # (Auto) (0.0-0.8) K/mm3 Eos # (Auto) (0.0-0.4) K/mm3 Baso # (Auto) (0.0-0.1) K/mm3 Seg Neutrophils % (40.0-70.0) % Seg Neutrophils # (1.8-7.7) K/mm3 Sodium (137-145) mmol/L Potassium (3.6-5.0) mmol/L Chloride (98-107) mmol/L Carbon Dioxide (22-30) mmol/L Anion Gap mmol/L BUN (9-20) mg/dL Creatinine (0.8-1.3) mg/dL Estimated GFR ml/min BUN/Creatinine Ratio % Glucose (75-100) mg/dL POC Glucose (70-105) mg/dL Calcium (8.4-10.2) mg/dL Urine Color Yellow (Yellow) Urine Turbidity Clear (Clear) Urine pH 5.0 (5.0-7.0) Ur Specific [place] 1.016 (1.003-1.030) Urine Protein <15 mg/dl (Negative) mg/dL Urine Glucose (UA) Neg (Negative) mg/dL Urine Ketones Neg (Negative) mg/dL Urine Blood Neg (Negative) Urine Nitrite Neg (Negative) Urine Bilirubin Neg (Negative) Urine Urobilinogen < 2.0 (<2.0) mg/dL Ur Leukocyte Esterase Neg (Negative) Urine WBC (Auto) 2.0 (0.0-6.0) /HPF Urine RBC (Auto) 1.0 (0.0-6.0) /HPF U Epithel Cells (Auto) 1.0 (0-13.0) /HPF Urine Mucus Few /HPF Salicylates (2.8-20.0) mg/dL Urine Opiates Screen Presumptive negative Urine Methadone Screen Presumptive negative Acetaminophen (10.0-30.0) ug/mL Ur Barbiturates Screen Presumptive negative Ur Phencyclidine Scrn Presumptive negative Ur Amphetamines Screen Presumptive positive U Benzodiazepines Scrn Presumptive negative Urine Cocaine Screen Presumptive negative U Marijuana (THC) Screen Presumptive positive Drugs of Abuse Note Disclamer Plasma/Serum Alcohol (0-0.07) % Coronavirus (PCR) Negative (Negative) - Medical Decision Making 36-year-old male with history of bipolar disorder presents complaining of severe depression and paranoia. He also says he is having auditory hallucinations. He has not been taking his medications. He denies SI/HI. Although he is charted as having a heart rate in the 110s, when I assessed the patient his heart rate was in the 80s. The remainder of his physical exam is within normal limits. Given that the patient expresses paranoia and admits to auditory hallucinations and noncompliance with his prescribed medications, I will place an ED hold order and send medical clearance labs Labs have resulted and reveal no significant leukocytosis or anemia. Creatinine is within normal range and there are no significant electrolyte abnormalities. He is medically cleared for psychiatric evaluation and placement if necessary. The patient was seen by the psychiatry/mental health assessment team who determined that he was appropriate for discharge. He was discharged on 01/23 with outpatient follow-up. Critical care attestation.: If time is entered above; I have spent that time in minutes in the direct care of this critically ill patient, excluding procedure time. ED Disposition Clinical Impression: Amphetamine use disorder, mild, Encounter for medical screening examination, Encounter for behavioral health screening Disposition: DC-01 TO HOME OR SELFCARE Is pt being admited?: No Condition: Good Additional Instructions: Please continue current outpatient medications. Please follow-up with your primary medical doctor within the next [address] Thacker Is a local primary care doctor. Please follow-up with outpatient mental health resources that have been provided to the patient. Please have a primary care doctor contact medical records department to obtain copies of laboratory studies, and medical documentation, to follow-up on nonemergent incidental abnormal findings. Recommend that patient abstain from consumption of marijuana, tobacco, smoke products, and alcohol and amphetamines. Please return to the emergency room right away with new pain, worsened pain, m igration of pain, projectile vomiting, change in mental status, confusion, inability to tolerate liquid feeds, new, worsened or different symptoms not present on the initial emergency room evaluation. Referrals: [facility] [Outside] - 3-5 Days [facility] [Outside] - 3-5 Days NAZANIN THACKER MD [Staff Physician] - 3-5 Days
--- NOTE | 2021-02-10 09:19 | Consultation ---
History of Present Illness - Reason for Consult Consult date: 02/10/21 Reason for consult: MHE - History of Present Psychiatric Illness Per ER Note: 36-year-old male with history of bipolar disorder presents complaining of severe depression along with paranoia. He states that he has not been taking his medications for the past week because he is depressed. He states that he lives with roommates who are all out to get him. He states "everyone is out to get me". He says he does not feel safe because he knows that they are "against me". When asked whether he has suicidal or homicidal ideation, he says no but says he was having homicidal ideation in the past. He says he does hear voices but he does not know who his voices they are and they are not telling him anything specific. He denies visual hallucinations. He says he has chronic right leg pain but otherwise has no physical symptoms or complaints of any kind. The patient was seen today, he is sleeping but easily arouses. He says he feels like he has "the flu" and needed to be checked out. He denies SI/HI or hallucinations of any kind. When asking the patient about his psych condition that brought him to the hospital, he says "yea, but I came here cause I thought I had the flu." The patient says he has been sleeping well. He denies any problems with his appetite. PAST PSYCHIATRIC HISTORY: Diagnoses: schizophrenia, depression, Anxiety, PTSD Suicide attempts or Self-harm behavior: Denies Prior psychiatric hospitalizations: unknown Substance Abuse history: Crystal Meth Previous psychiatric medications tried: Risperdal Outpatient treatment: yes PAST MEDICAL HISTORY: n/a Family Psychiatric History: None reported or documented SOCIAL HISTORY Marital Status: Living Arrangements: Lives alone Employment Status: Disability Access to guns/weapons: n/a Education: GED History of Abuse: n/a Legal History: n/a REVIEW OF SYSTEMS Constitutional: Negative for weight loss ENT: Negative for stridor Respiratory: Negative for cough or hemoptysis All other systems reviewed and are negative MENTAL STATUS EXAMINATION General Appearance and Behavior: Age appropriate, good hygiene, wearing appropriate clothes, cooperative polite with questioning. Cooperation: cooperative Psychomotor Behavior: Normal behavior Mood: "alright" Affect and affective range: congruent to stated mood Thought Process: Goal directed Thought Content: within reality Speech: Normal volume, Regular rate and rhythm Intellectual Functioning: Average Suicidal Ideation: Denies Homicidal Ideation: Denies hallucination: Denies Delusions: None elicited Impulse Control: Intact Insight and Judgment: limited Memory: Intact Attention:Normal Orientation: Alert and oriented Diagnoses: Amphetamine Use Disorder Current Visit: Yes Status: Acute RECOMMENDATIONS Continue previously prescribed medications Risks, benefits and alternatives of medications discussed with the patient, questions answered and consent obtained from patient. PSYCHOTHERAPY: Supportive psychotherapy provided MEDICAL: Per primary team DELIRIUM PRECAUTIONS: Please re-orient patient frequently, keep lights on during the day, and minimize benzodiazepines and opiates as these medications could worsen patient's confusion. 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 The patient understands that if SI/HI or any fear of endangerment are to arise he is to seek immediate assistance. The pallet rectifier to further discuss safety plan The pallet rectifier to give all needed resources for outpatient services The patient to abstain from all illicit drug use He is to follow up with outpatient psych in 7 to 14 days upon discharge FOLLOW-UP: Will sign off Thank you for the consult. Please contact with any questions and/or concerns. Case staffed with Dr. Gomez Medications and Allergies Allergies Allergy/AdvReac Type Severity Reaction Status Date / Time shellfish derived Allergy Unknown Verified 01/22/21 23:20 Home Medications Medication Instructions Recorded Confirmed Last Taken Type ARIPiprazole [Abilify] 15 mg PO DAILY 30 Days #30 tab 01/23/21 02/10/21 Unknown Rx QUEtiapine [SEROquel] 200 mg PO QHS 30 Days #30 tablet 01/23/21 02/10/21 Unknown Rx buPROPion XL [Wellbutrin Xl] 300 mg PO DAILY 02/10/21 02/10/21 Unknown History Mental Status Exam - Vital signs Last Vital Signs Temp 98.2 F 02/10/21 05:20 Pulse 85 02/10/21 05:20 Resp 16 02/10/21 05:20 BP 166/82 02/10/21 05:20 Pulse Ox 100 02/10/21 05:20 Results Result Diagrams: 02/10/21 04:12 02/10/21 04:12 Abnormal lab results 02/10/21 02/10/21 02/10/21 Range/Units 04:12 04:12 04:12 RDW (13.2-15.2) % [place] % (Auto) (0.0-7.3) % Glucose 65 L (75-100) mg/dL Salicylates < 0.3 L (2.8-20.0) mg/dL Acetaminophen 5.0 L (10.0-30.0) ug/mL 02/10/21 Range/Units 04:12 RDW 13.0 L (13.2-15.2) % [place] % (Auto) 10.6 H (0.0-7.3) % Glucose (75-100) mg/dL Salicylates (2.8-20.0) mg/dL Acetaminophen (10.0-30.0) ug/mL All other labs normal.
[2021-02-10] MEDS ORDERED: DEXTROSE 50% IN WATER (25GM) 50 ML VIAL IV PRN (10:23)
--- NOTE | 2021-02-10 11:12 | Event Note ---
Date: 02/10/21 Laboratory studies psychiatric documentation, ER documentation, nursing documentation are reviewed and appreciated. Patient was deemed medically cleared on his initial ER evaluation. The psychiatric team has recommended outpatient discharge. On my assessment, the patient is awake, alert, oriented, sober, walking with a steady gait, pleasant, smiling and engaging. He denies physical pain. He denies homicidality and suicidality. Accu-Chek within normal limits. He ate breakfast this morning without difficulty. Nursing team endorses no acute complaints or concerns this morning. Patient does not require inpatient medical hospitalization, or psychiatric inpatient hospitalization at this time, and may be discharged. Vital Signs 02/10/21 02/10/21 03:42 05:20 Temperature 98.2 F 98.2 F Pulse Rate 112 H 85 Respiratory 17 16 Rate Blood Pressure 175/100 Blood Pressure 166/82 [Left] O2 Sat by Pulse 100 100 Oximetry Lab Results 02/10/21 02/10/21 02/10/21 Range/Units 04:12 04:12 04:12 WBC (4.5-11.0) K/mm3 RBC (3.65-5.03) M/mm3 Hgb (11.8-15.2) gm/dl Hct (35.5-45.6) % MCV (84-94) fl MCH (28-32) pg MCHC (32-34) % RDW (13.2-15.2) % Plt Count (140-440) K/mm3 Lymph % (Auto) (13.4-35.0) % [place] % (Auto) (0.0-7.3) % Eos % (Auto) (0.0-4.3) % Baso % (Auto) (0.0-1.8) % Lymph # (Auto) (1.2-5.4) K/mm3 [place] # (Auto) (0.0-0.8) K/mm3 Eos # (Auto) (0.0-0.4) K/mm3 Baso # (Auto) (0.0-0.1) K/mm3 Seg Neutrophils % (40.0-70.0) % Seg Neutrophils # (1.8-7.7) K/mm3 Sodium 137 (137-145) mmol/L Potassium 4.6 (3.6-5.0) mmol/L Chloride 99.9 (98-107) mmol/L Carbon Dioxide 23 (22-30) mmol/L Anion Gap 19 mmol/L BUN 11 (9-20) mg/dL Creatinine 1.1 (0.8-1.3) mg/dL Estimated GFR > 60 ml/min BUN/Creatinine Ratio 10 % Glucose 65 L (75-100) mg/dL POC Glucose (70-105) mg/dL Calcium 9.7 (8.4-10.2) mg/dL Urine Color (Yellow) Urine Turbidity (Clear) Urine pH (5.0-7.0) Ur Specific [place] (1.003-1.030) Urine Protein (Negative) mg/dL Urine Glucose (UA) (Negative) mg/dL Urine Ketones (Negative) mg/dL Urine Blood (Negative) Urine Nitrite (Negative) Urine Bilirubin (Negative) Urine Urobilinogen (<2.0) mg/dL Ur Leukocyte Esterase (Negative) Urine WBC (Auto) (0.0-6.0) /HPF Urine RBC (Auto) (0.0-6.0) /HPF U Epithel Cells (Auto) (0-13.0) /HPF Urine Mucus /HPF Salicylates < 0.3 L (2.8-20.0) mg/dL Urine Opiates Screen Urine Methadone Screen Acetaminophen 5.0 L (10.0-30.0) ug/mL Ur Barbiturates Screen Ur Phencyclidine Scrn Ur Amphetamines Screen U Benzodiazepines Scrn Urine Cocaine Screen U Marijuana (THC) Screen Drugs of Abuse Note Plasma/Serum Alcohol (0-0.07) % 02/10/21 02/10/21 02/10/21 Range/Units 04:12 04:12 11:05 WBC 5.3 (4.5-11.0) K/mm3 RBC 4.54 (3.65-5.03) M/mm3 Hgb 14.3 (11.8-15.2) gm/dl Hct 42.8 (35.5-45.6) % MCV 94 (84-94) fl MCH 32 (28-32) pg MCHC 34 (32-34) % RDW 13.0 L (13.2-15.2) % Plt Count 350 (140-440) K/mm3 Lymph % (Auto) 33.2 (13.4-35.0) % [place] % (Auto) 10.6 H (0.0-7.3) % Eos % (Auto) 0.7 (0.0-4.3) % Baso % (Auto) 0.6 (0.0-1.8) % Lymph # (Auto) 1.7 (1.2-5.4) K/mm3 [place] # (Auto) 0.6 (0.0-0.8) K/mm3 Eos # (Auto) 0.0 (0.0-0.4) K/mm3 Baso # (Auto) 0.0 (0.0-0.1) K/mm3 Seg Neutrophils % 54.9 (40.0-70.0) % Seg Neutrophils # 2.9 (1.8-7.7) K/mm3 Sodium (137-145) mmol/L Potassium (3.6-5.0) mmol/L Chloride (98-107) mmol/L Carbon Dioxide (22-30) mmol/L Anion Gap mmol/L BUN (9-20) mg/dL Creatinine (0.8-1.3) mg/dL Estimated GFR ml/min BUN/Creatinine Ratio % Glucose (75-100) mg/dL POC Glucose 87 (70-105) mg/dL Calcium (8.4-10.2) mg/dL Urine Color (Yellow) Urine Turbidity (Clear) Urine pH (5.0-7.0) Ur Specific [place] (1.003-1.030) Urine Protein (Negative) mg/dL Urine Glucose (UA) (Negative) mg/dL Urine Ketones (Negative) mg/dL Urine Blood (Negative) Urine Nitrite (Negative) Urine Bilirubin (Negative) Urine Urobilinogen (<2.0) mg/dL Ur Leukocyte Esterase (Negative) Urine WBC (Auto) (0.0-6.0) /HPF Urine RBC (Auto) (0.0-6.0) /HPF U Epithel Cells (Auto) (0-13.0) /HPF Urine Mucus /HPF Salicylates (2.8-20.0) mg/dL Urine Opiates Screen Urine Methadone Screen Acetaminophen (10.0-30.0) ug/mL Ur Barbiturates Screen Ur Phencyclidine Scrn Ur Amphetamines Screen U Benzodiazepines Scrn Urine Cocaine Screen U Marijuana (THC) Screen Drugs of Abuse Note Plasma/Serum Alcohol < 0.01 (0-0.07) % 02/10/21 02/10/21 Range/Units Unknown Unknown WBC (4.5-11.0) K/mm3 RBC (3.65-5.03) M/mm3 Hgb (11.8-15.2) gm/dl Hct (35.5-45.6) % MCV (84-94) fl MCH (28-32) pg MCHC (32-34) % RDW (13.2-15.2) % Plt Count (140-440) K/mm3 Lymph % (Auto) (13.4-35.0) % [place] % (Auto) (0.0-7.3) % Eos % (Auto) (0.0-4.3) % Baso % (Auto) (0.0-1.8) % Lymph # (Auto) (1.2-5.4) K/mm3 [place] # (Auto) (0.0-0.8) K/mm3 Eos # (Auto) (0.0-0.4) K/mm3 Baso # (Auto) (0.0-0.1) K/mm3 Seg Neutrophils % (40.0-70.0) % Seg Neutrophils # (1.8-7.7) K/mm3 Sodium (137-145) mmol/L Potassium (3.6-5.0) mmol/L Chloride (98-107) mmol/L Carbon Dioxide (22-30) mmol/L Anion Gap mmol/L BUN (9-20) mg/dL Creatinine (0.8-1.3) mg/dL Estimated GFR ml/min BUN/Creatinine Ratio % Glucose (75-100) mg/dL POC Glucose (70-105) mg/dL Calcium (8.4-10.2) mg/dL Urine Color Yellow (Yellow) Urine Turbidity Clear (Clear) Urine pH 5.0 (5.0-7.0) Ur Specific [place] 1.016 (1.003-1.030) Urine Protein <15 mg/dl (Negative) mg/dL Urine Glucose (UA) Neg (Negative) mg/dL Urine Ketones Neg (Negative) mg/dL Urine Blood Neg (Negative) Urine Nitrite Neg (Negative) Urine Bilirubin Neg (Negative) Urine Urobilinogen < 2.0 (<2.0) mg/dL Ur Leukocyte Esterase Neg (Negative) Urine WBC (Auto) 2.0 (0.0-6.0) /HPF Urine RBC (Auto) 1.0 (0.0-6.0) /HPF U Epithel Cells (Auto) 1.0 (0-13.0) /HPF Urine Mucus Few /HPF Salicylates (2.8-20.0) mg/dL Urine Opiates Screen Presumptive negative Urine Methadone Screen Presumptive negative Acetaminophen (10.0-30.0) ug/mL Ur Barbiturates Screen Presumptive negative Ur Phencyclidine Scrn Presumptive negative Ur Amphetamines Screen Presumptive positive U Benzodiazepines Scrn Presumptive negative Urine Cocaine Screen Presumptive negative U Marijuana (THC) Screen Presumptive positive Drugs of Abuse Note Disclamer Plasma/Serum Alcohol (0-0.07) %
[2021-02-10 11:20] VITALS: BP 117/81
== END 2021-02-10 12:02 | disposition home or self-care (01) ==
LOC: ED 03:00
DX: F15.20 Other stimulant dependence, uncomplicated (principal); F32.9 Major depressive disorder, single episode, unspecified; F41.8 Other specified anxiety disorders; B20 Human immunodeficiency virus [HIV] disease; R44.0 Auditory hallucinations; F17.290 Nicotine dependence, other tobacco product, uncomplicated; Z98.890 Other specified postprocedural states; Z20.822 Contact with and (suspected) exposure to COVID-19
CPT/HCPCS: 36415; 80048; 80307; 81001; 82962; 85025; 99284; U0003; 80320; 96365; G0480

== ENCOUNTER 2021-02-11 00:14 | Emergency (ER) | payer MEDICAID ==
[2021-02-11] MEDS ORDERED: QUEtiapine 200 MG TAB PO ONE (03:33)
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
[2021-02-11 09:42] VITALS: BP 131/79
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
== END 2021-02-11 13:35 | disposition home or self-care (01) ==
LOC: EEVIPCON 00:14 → ED 00:14
DX: F60.0 Paranoid personality disorder (principal); F17.200 Nicotine dependence, unspecified, uncomplicated; F12.10 Cannabis abuse, uncomplicated; Z98.890 Other specified postprocedural states; Z79.899 Other long term (current) drug therapy; Z91.013 Allergy to seafood

== ENCOUNTER 2021-03-03 01:00 | Emergency (ER) | payer MEDICAID ==
[2021-03-03 03:11] VITALS: BP 166/113
== END 2021-03-03 03:30 | disposition left against medical advice (07) ==
LOC: ED 01:00
DX: Z00.8 Encounter for other general examination (principal); Z53.21 Procedure and treatment not carried out due to patient leaving prior to being seen by health care provider